=== PATIENT | female | born 1945 | race Two or more races ===

== ENCOUNTER → 2022-07-04 | Outpatient (CLI) | payer OTHER | END | disposition home or self-care (01) | LOC: SONOGRAMA 10:12 | PROVIDERS: ATTEND Pathology Anatomic Pathology & Clinical Pathology | DX: D34 Benign neoplasm of thyroid gland (principal); D44.0 Neoplasm of uncertain behavior of thyroid gland; E04.9 Nontoxic goiter, unspecified; E07.9 Disorder of thyroid, unspecified; E04.1 Nontoxic single thyroid nodule ==

== ENCOUNTER 2022-10-14 09:53 | Outpatient (CLI) | payer OTHER | END 2022-10-14 09:57 | disposition home or self-care (01) | LOC: SONOGRAMA 09:53 | PROVIDERS: ATTEND Pathology Anatomic Pathology & Clinical Pathology | DX: D44.0 Neoplasm of uncertain behavior of thyroid gland (principal) ==

== ENCOUNTER 2023-01-01 05:00 | Day surgery (SDC) | payer OTHER ==
[~2023-01-01] VITALS: Ht 157.5 cm; Wt 56.7 kg
[~2023-01-01 05:00] MED LIST: CLONAZEPAM0.5 MG PO; CRESTOR5 MG PO; VITAMIN D3 PO
[2023-01-01] MEDS ORDERED: PERCOCET 5-3251 EACH PO (09:16)
== END 2023-01-01 12:50 | disposition home or self-care (01) ==
LOC: CIR.AMB 05:00
PROVIDERS: ATTEND Surgery
DX: C73 Malignant neoplasm of thyroid gland (principal); Z20.822 Contact with and (suspected) exposure to COVID-19